=== PATIENT | female | born 1965 | race African-American/Black ===

== ENCOUNTER 2016-07-21 11:40 | Emergency (ER) | payer BC, OTHER ==
[2016-07-21] MEDS ORDERED: CLONIDINE HCL 0.1 MG TABLET PO ONE (12:23)
--- NOTE | 2016-07-21 12:25 | ER Document Report ---
ED Medical Screen (RME) - General Chief Complaint: High Blood Pressure Stated Complaint: DIZZY,ELEVATED BLOOD PRESSURE Time Seen by Provider: 07/21/16 12:22 Notes: Patient is here to have her blood pressure assessed. 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 She did feel dizzy while she was working in that hot environment yesterday. Last night, when she got home, she noticed some tingling in her left arm and leg and still feels "funny" in the leg and arm. She took her blood pressure at home and it was 230/100s. EMS was called and they came and checked her blood pressure and it was still high, systolic 190s, so she came here. Patient does not have a history of high blood pressure and is not on any medicines for the same. In fact, she is not on any medicines for any medical condition. No history of heart disease. No history of diabetes. Does smoke. TRAVEL OUTSIDE OF THE [place] IN LAST 30 DAYS: No - Related Data Allergies/Adverse Reactions: No Known Allergies Allergy (Verified 07/21/16 11:55) Past Medical History Renal/ Medical History: Denies: Hx Peritoneal Dialysis Past Surgical History: Reports: Hx Hysterectomy - 2005 Physical Exam - Vital signs Vitals: Temp Pulse Resp BP Pulse Ox 97.7 F 78 16 200/84 H 100 07/21/16 11:47 07/21/16 11:47 07/21/16 11:47 07/21/16 11:47 07/21/16 11:47 Course - Vital Signs Vital signs: Temp Pulse Resp BP Pulse Ox 97.7 F 78 16 200/84 H 100 07/21/16 11:47 07/21/16 11:47 07/21/16 11:47 07/21/16 11:47 07/21/16 11:47
[2016-07-21 12:54] LABS: ABSOLUTE EOSINOPHILS # (AUTO) 0.1 10^3/uL (0.0-0.6); ABSOLUTE LYMPHOCYTES (AUTO) 1.2 10^3/uL (0.5-4.7); ABSOLUTE MONOCYTES (AUTO) 0.4 10^3/uL (0.1-1.4); ABSOLUTE NEUT (AUTO) 3.9 10^3/uL (1.7-8.2); BASOPHILS % (AUTO) 0.6 % (0-2); EOSINOPHILS % (AUTO) 1.5 % (0-6); HEMATOCRIT 37.9 % (36.0-47.0); HEMOGLOBIN 11.8 g/dL (12.0-15.5); HGB HCT DIFFERENCE -2.5; LYMPHOCYTES % (AUTO) 21.1 % (13-45); MEAN CORPUSCULAR HEMOGLOBIN 23.2 pg (27.0-33.4); MEAN CORPUSCULAR HGB CONC 31.1 g/dL (32.0-36.0); MEAN CORPUSCULAR VOLUME 75 fl (80-97); MONOCYTES % (AUTO) 7.8 % (3-13); RED BLOOD COUNT 5.07 10^6/uL (3.72-5.28); WHITE BLOOD COUNT 5.6 10^3/uL (4.0-10.5)
[2016-07-21 13:10] LABS: ALANINE AMINOTRANSFERASE 27 U/L (9-52); ALKALINE PHOSPHATASE 110 U/L (38-126); ANION GAP 8 (5-19); ASPARTATE AMINO TRANSFERASE 20 U/L (14-36); BILIRUBIN,DIRECT 0.5 mg/dL (0.0-0.4); BILIRUBIN,TOTAL 0.7 mg/dL (0.2-1.3); BLOOD UREA NITROGEN 17 mg/dL (7-20); CARBON DIOXIDE 24 mmol/L (22-30); CHLORIDE 109 mmol/L (98-107); CREATININE RESULT 0.85 mg/dL (0.52-1.25); GLUCOSE 98 mg/dL (75-110); POTASSIUM 4.4 mmol/L (3.6-5.0); SODIUM 141.1 mmol/L (137-145); TOTAL PROTEIN 7.4 g/dL (6.3-8.2)
[2016-07-21 13:31] LABS: CALCIUM 12.6 mg/dL (8.4-10.2)
[2016-07-21 13:35] LABS: CREATINE KINASE MB 1.11 ng/mL (<4.55)
[2016-07-21 13:36] LABS: TROPONIN I < 0.012 ng/mL
--- NOTE | 2016-07-21 17:17 | ER Document Report ---
ED Blood Pressure Problem - General Chief Complaint: High Blood Pressure Stated Complaint: DIZZY,ELEVATED BLOOD PRESSURE Time Seen by Provider: 07/21/16 12:22 Information source: Patient TRAVEL OUTSIDE OF THE [place] IN LAST 30 DAYS: No - HPI Patient complains to provider of: High blood pressure Onset: Just prior to arrival Onset/Duration: Intermittent - This is a 50-year-old female presented to the emergency room today stating that she had been having a scant headache as well as felt as though her blood pressure was elevated due to hearing her blood pressure in her ears. - Related Data Allergies/Adverse Reactions: No Known Allergies Allergy (Verified 07/21/16 11:55) Past Medical History - Social History Smoking Status: Never Smoker Cigarette use (# per day): No Chew tobacco use (# tins/day): No Smoking Education Provided: No Frequency of alcohol use: None Family History: Reviewed & Not Pertinent Renal/ Medical History: Denies: Hx Peritoneal Dialysis Past Surgical History: Reports: Hx Hysterectomy - 2005 Review of Systems - Review of Systems Constitutional: No symptoms reported EENT: No symptoms reported Cardiovascular: No symptoms reported Respiratory: No symptoms reported Gastrointestinal: No symptoms reported Genitourinary: No symptoms reported Female Genitourinary: No symptoms reported Musculoskeletal: No symptoms reported Skin: No symptoms reported Hematologic/Lymphatic: No symptoms reported Neurological/Psychological: No symptoms reported Physical Exam - Vital signs Vitals: Temp Pulse Resp BP Pulse Ox 97.7 F 78 16 200/84 H 100 07/21/16 11:47 07/21/16 11:47 07/21/16 11:47 07/21/16 11:47 07/21/16 11:47 Interpretation: Normal - General General appearance: Appears well, Alert - HEENT Head: Normocephalic, Atraumatic Eyes: Normal Pupils: PERRL - Respiratory Respiratory status: No respiratory distress Chest status: Nontender Breath sounds: Normal Chest palpation: Normal - Cardiovascular Rhythm: Regular Heart sounds: Normal auscultation Murmur: No - Abdominal Inspection: Normal Distension: No distension Bowel sounds: Normal Tenderness: Nontender Organomegaly: No organomegaly - Back Back: Normal, Nontender - Extremities General upper extremity: Normal inspection, Nontender, Normal color, Normal ROM , Normal temperature General lower extremity: Normal inspection, Nontender, Normal color, Normal ROM , Normal temperature, Normal weight bearing. No: Vee's sign - Neurological Neuro grossly intact: Yes Cognition: Normal Orientation: AAOx4 Disney Coma Scale Eye Opening: Spontaneous Buster Coma Scale Verbal: Oriented Disney Coma Scale Motor: Obeys Commands Disney Coma Scale Total: 15 Speech: Normal Motor strength normal: LUE, RUE, LLE, RLE Sensory: Normal - Psychological Associated symptoms: Normal affect, Normal mood - Skin Skin Temperature: Warm Skin Moisture: Dry Skin Color: Normal Course - Re-evaluation Re-evalutation: 07/21/16 17:13 Provided clonidine in the pit area of the emergency room upon arrival to the reresection her blood pressure was 136/74 patient was feeling well did not hear her blood pressure in her ears did not have any headache nor did she have any dizziness upon standing and ambulating in the room and expressed her desire to be discharged. - Vital Signs Vital signs: Temp Pulse Resp BP Pulse Ox 97.7 F 78 16 137/62 H 100 07/21/16 11:47 07/21/16 11:47 07/21/16 11:47 07/21/16 16:22 07/21/16 11:47 - Laboratory Result Diagrams: 07/21/16 12:25 07/21/16 12:25 Laboratory results interpreted by me: 07/21/16 07/21/16 12:25 12:25 Hgb 11.8 L MCV 75 L MCH 23.2 L MCHC 31.1 L Chloride 109 H Calcium 12.6 H* Direct Bilirubin 0.5 H Discharge - Discharge Clinical Impression: Hypertension Qualifiers: Hypertension type: essential hypertension Qualified Code(s): I10 - Essential ( primary) hypertension Disposition: HOME, SELF-CARE Instructions: High Blood Pressure ([facility]), High Blood Pressure, Requiring Treatment ([facility]), Hydrochlorothiazide ([facility]) Additional Instructions: High Blood Pressure When your blood pressure was taken today it was elevated. Today's reading was . Pre-hypertension/Hypertension: The patient has been informed that they may have pre-hypertension or Hypertension based on a blood pressure reading in the emergency department. I recommend that the patient call the primary care provider listed on their dischargge instructions or a physician of their choice this wee to arrage follow up for further evaluation of possible pre- hypertension or Hypertension. Sometimes, stress or illness causes a temporary elevation of your blood pressure. We suggest that you get your blood pressure measured three more times during the next few days to see if this is more than a temporary abnormality. If your blood pressure is greater than 150/90 on each occasion, you must have treatment. Some simple things you can do to help are: If you have blood pressure medicine but aren't using it regularly, start taking it again. Get some aerobic exercise for at least 20 minutes on a daily basis. (See your doctor before beginning a new exercise program.) Eat a low-fat diet. Lose excess weight. Avoid salty foods and avoid adding salt to any of the foods you eat. Avoid diet pills, decongestants, "energizing" herbs, and other medicines that elevate blood pressure. If left untreated, hypertension greatly enhances your risk for developing heart disease and strokes. Please don't ignore this problem. Follow-up with private doctor in 1 to 2 days for final radiology readings please return to the emergency room for any change worsening condition. Follow up with private M.D. for all other routine health care needs. Prescriptions: Hydrochlorothiazide [Hydrodiuril 50 mg Tablet] 50 mg PO QAM #30 tablet
[2016-07-21 17:50] VITALS: BP 118/65
--- NOTE | 2016-07-21 18:42 | EKG REPORT ---
SEVERITY:- ABNORMAL ECG - SINUS RHYTHM PROBABLE LEFT ATRIAL ABNORMALITY PROBABLE LEFT VENTRICULAR HYPERTROPHY : Confirmed by: Nabeel Tinajero MD 21-Jul-2016 18:41:25
== END 2016-07-21 17:41 | disposition home or self-care (01) ==
LOC: ER 11:40
DX: I10 Essential (primary) hypertension (principal)
CPT/HCPCS: 36415; 80053; 82553; 84484; 85025; 93005; 93010; 99284